=== PATIENT | male | born 1980 | race Caucasian/White ===

== ENCOUNTER 2016-09-19 22:52 | Emergency (ER) | payer SELFPAY ==
[~2016-09-19] VITALS: Wt 67.5 kg
--- NOTE | 2016-09-20 01:56 | RADRPT ---
PROCEDURE: XR Chest. CLINICAL INDICATION: Right rib pain TECHNIQUE: AP Portable chest. COMPARISON: No pertinent prior examinations were submitted for comparison. FINDINGS: The cardiomediastinal silhouette is normal. The lungs are clear. The osseous structures are unrema rkable. IMPRESSION: No acute findings. RPTAT: HIKT .Villa Aaron MD, MD Date Time Electronically viewed and signed by .Villa Aaron MD, MD on 09/20/2016 01:56 .T/
--- NOTE | 2016-09-20 01:56 | RADRPT ---
PROCEDURE: Right rib x-rays CLINICAL INDICATION: Chest pain. TECHNIQUE: 4 views of the right ribs. COMPARISON: None available. FINDINGS: No displaced rib fracture is identified. There is no pneumothorax. The visualized lungs are clear. The cardiac silhouette is not enlarged. There is no pleural effusion. IMPRESSION: 1. No rib fracture is identified, although the presence of a nondisplaced rib fracture cannot be ex cluded. RPTAT: HTAR .Faustino White MD, MD Date Time Electronically viewed and signed by .Faustino White MD, on 09/20/2016 01:56 .R/
[2016-09-20] MEDS ORDERED: IBUP-1542 PO (02:04)
--- NOTE | 2016-09-20 02:09 | ERD ---
ER Documentation Chief Complaint Date/Time DATE: 09/20/16 TIME: 02:07 Chief Complaint RIB PAIN S/P FALL X1WEEK AGO IN SHOWER HPI This is a 35-year-old male presents to the ER with right-sided rib pain that started after he fell in shower. Patient states that her rib pain is sharp in quality and has been intermittent. He is also complaining of pain whenever he takes a deep breath in. He denies any chest pain. Patient does not have any fevers or chills. He denies any nausea vomiting or diarrhea. He denies any abdominal pain. ROS 12 point review of systems was done, all negative except per HPI. Medications Home Meds Active Scripts Ibuprofen* (Motrin*) 600 Mg Tab, 600 MG PO Q6, #30 TAB Prov:MARY LOU PARKINSON Mallory 09/20/16 Allergies Allergies: Coded Allergies: No Known Allergy (Unverified , 09/19/16) PMhx/Soc Medical and Surgical Hx: pt denies Medical Hx, pt denies Surgical Hx Hx Alcohol Use: No Hx Substance Use: No Hx Tobacco Use: No Smoking Status: Never smoker Physical Exam Vitals Vital Signs Date Time Temp Pulse Resp B/P Pulse Ox O2 Delivery O2 Flow Rate FiO2 09/19/16 23:04 97.2 90 20 127/71 98 Physical Exam GENERAL: The patient is well developed and appropriate for usual state of health , in no apparent distress. HEENT: Atraumatic. CHEST: Clear to auscultation bilaterally. There are no rales, wheezes or rhonchi. HEART: Regular rate and rhythm. No murmurs, clicks, rubs or gallops. ABDOMEN: Soft, nontender and nondistended. Good bowel sounds. No rebound or guarding. No gross peritonitis. No gross organomegaly or masses. No Fong sign or McBurney point tenderness. Patient is tender to palpation to the right rib cage. BACK: No midline or flank tenderness. NEURO: Alert and oriented. Procedures/MDM This is a 35-year-old male presents to the ER with right-sided rib cage pain. Patient probably has a rib contusion. Suspicion for fracture is low as x-rays are normal. There is no evidence of pneumothorax. Suspicion for acute abdominal etiology as well as patient does not have any abdominal pain. Patient is afebrile and well-appearing is not hypoxic or in any respiratory distress. He will be sent with ibuprofen. He needs a follow-up with his primary care doctor within 1-2 days or return to ER sooner if symptoms worsen. My medical decision making was shared with the patient he understands and agrees with plan. Departure Diagnosis: Primary Impression: Rib pain Condition: Stable Patient Instructions: Rib Contusion Additional Instructions: Call your primary care doctor TOMORROW for an appointment during the next 1-2 days.See the doctor sooner or return here if your condition worsens before your appointment time. MARY LOU PARKINSON Sep 20, 2016 02:09
[2016-09-20 02:30] VITALS: BP 125/75; PULSE 80; RESP 18; TEMP 97.8
[2016-09-20] MEDS ORDERED: IBUPROFEN 600 MG TAB PO ONE (02:30)
== END 2016-09-20 02:32 | disposition home or self-care (01) ==
LOC: FTE 22:52
DX: R07.81 Pleurodynia (principal)
CPT/HCPCS: 71010; 71100